=== PATIENT | male | born 1940 | race Caucasian/White ===

== ENCOUNTER → 2024-01-27 | Outpatient (CLI) | payer MEDICARE ==
[~2024-01-27] MED LIST: ACIPHEX; AMOX500C; ASPI81TA26 PO; ASTEPRO; ATOR80TA59 PO; AVALIDE; COUM1TAB18; COUM2TAB22 PO; FLUT1SPR2; LIPI1TAB2; LOSA100T5 PO; METO25TA2; OMEP1CAP73 PO; PERC5TAB8
== END ==
LOC: M PLAIMG 08:48
PROVIDERS: ATTEND Orthopaedic Surgery
DX: M47.816 Spondylosis without myelopathy or radiculopathy, lumbar region (principal)